=== PATIENT | female | born 1990 | race Caucasian/White ===

== ENCOUNTER 2022-06-29 16:57 | Emergency (ER) | payer OTHER ==
[2022-06-29 18:23] VITALS: TEMP 98.5
[2022-06-29] MEDS ORDERED: SODIUM CHLORIDE 0.9% 1,000 ML IV ONE (22:49)
[2022-06-29] MEDS ORDERED: KETOROLAC 15 MG/ML 1 ML VIAL IVP STA (22:49)
[2022-06-29 23:14] LABS: Appearance,Urine Cloudy (Clear); Bacteria,Urine Rare /hpf; Bilirubin,Urine Negative (Negative); Blood,Urine Large (Negative); Color,Urine Yellow; Glucose,Urine (UA) Negative (Negative); Ketones,Urine Negative (Negative); Leukocyte Esterase,Urine Large (Negative); Mucus,Urine Few /hpf; Nitrite,Urine Negative (Negative); Protein,Urine Trace (Negative); RBC,Urine 7 /hpf (0-5); Specific Gravity,Urine 1.021 (1.001-1.035); Squamous Epithelial Cell,Urine 29 /hpf (0-4); Urobilinogen,Urine <2.0 mg/dL (<2.0); WBC,Urine 12 /hpf (0-5)
[2022-06-29 23:25] LABS: Basophils # (A) 0.1 k/uL (0-0.2); Basophils % (A) 1 %; Eosinophils # (A) 0.2 k/uL (0-0.7); Eosinophils % (A) 1 %; HCT 40.2 % (34.0-46.0); HGB 12.7 gm/dL (11.4-16.0); Lymphocytes # (A) 4.1 k/uL (1.0-4.8); Lymphocytes % (A) 28 %; MCH 29.2 pg (25.0-35.0); MCHC 31.7 g/dL (31.0-37.0); MCV 91.9 fL (80.0-100.0); Mean Platelet Volume 7.2; Monocytes # (A) 0.7 k/uL (0-1.0); Monocytes % (A) 5 %; Neutrophils # (A) 9.6 k/uL (1.3-7.7); Neutrophils % (A) 64 %; Platelet Count 355 k/uL (150-450); RBC 4.37 m/uL (3.80-5.40); RDW 12.9 % (11.5-15.5)
[2022-06-29 23:43] LABS: INR 0.9 (<1.2); Partial Thromboplastin Time 24.3 sec (22.0-30.0); Prothrombin Time 10.4 sec (9.0-12.0)
[2022-06-30 00:10] LABS: ALT 13 U/L (4-34); African American GFR (CKD) >90 (>60 ml/min/1.73 sqM); Albumin 3.9 g/dL (3.5-5.0); Anion Gap 9 mmol/L; Blood Urea Nitrogen 7 mg/dL (7-17); Calcium 8.7 mg/dL (8.4-10.2); Carbon Dioxide 22 mmol/L (22-30); Chloride 104 mmol/L (98-107); Glucose 83 mg/dL (74-99); Non-African American GFR(CKD) >90 (>60 ml/min/1.73 sqM); Sodium 135 mmol/L (137-145); Total Bilirubin 0.5 mg/dL (0.2-1.3); Total Protein 6.8 g/dL (6.3-8.2)
--- NOTE | 2022-06-30 00:34 | US ---
EXAMINATION TYPE: US pelvis complete transvag DATE OF EXAM: 06/30/2022 COMPARISON: CT scan 06/26/2022 CLINICAL HISTORY: rlq pain, large dermoid. Right pelvic pain, patient states she had imaging done rec ently at [facility] and was told she has a dermoid in right adnexa, patient has IUD TECHNIQUE: . Transvaginal ER exam. Date of LMP: 06/09/2022 EXAM MEASUREMENTS: Uterus: 9.0 x 4.9 x 6.3 cm Endometrial Stripe: 0.9 cm 1. Uterus: wnl 2. Endometrium: IUD seen in place 3. Right Ovary: not seen 4. Left Ovary: not seen 5. Bilateral Adnexa: 8.0 x 5.5 x 7.8cm hyperechoic mass right adnexa 6. Posterior cul-de-sac: wnl IMPRESSION: There is a large solid mass in the right adnexal region. Most of this mass has a density of -[address] scan of 06/26/2022 and consistent with fat related to a large dermoid tumor. Normal uterus. Ovaries not seen.
[2022-06-30 00:37] LABS: AST 26 U/L (14-36); Alkaline Phosphatase 57 U/L (38-126)
--- NOTE | 2022-06-30 01:29 | ED ---
Female Urogenital HPI - General Chief complaint: Vaginal Bleeding Stated complaint: Abd pain Time Seen by Provider: 06/29/22 22:30 Source: patient Mode of arrival: ambulatory Limitations: no limitations - History of Present Illness Initial comments: 32-year-old female who is who presents emergency department with right lower quadrant abdominal pain. States that it is intermittent. It has been going on since Thursday. She went into [facility] on and had a CT performed because of her pain. They found that she had an 8 cm dermoid cyst. Also, she had a UTI. They placed her on Keflex. Patient states she has been taking the medications as directed. Additionally taken Motrin and Tylenol for pain. She continues to have pain in the right lower quadrant. Had significant pain while at work today while standing therefore this prompted her return to the emergency department. Her pain is alleviated when she lays flat. States that the Motrin has not been working very well for her. She did call on Thursday to make an appointment with Dr. Figueroa who is her TERRITORY MANAGER. She admits to frequency of urination. Has had some vaginal spotting which started today. States she normally does not have normal menstrual cycles due to history of PCOS. Patient does have IUD in place. She denies any issues with her bowel movements. No other alleviating, precipitating or modifying factors - Related Data Previous Rx's Medication Instructions Recorded HYDROcodone/APAP 5-325MG [[place] 1 tab PO Q6HR PRN 3 Days #12 tab 06/30/22 5-325] Allergies Allergy/AdvReac Type Severity Reaction Status Date / Time Antihistamines - Ethanolamine Allergy Unknown Verified 06/29/22 18:23 diphenhydramine Allergy Unknown Verified 06/29/22 18:23 [From Benadryl] Review of Systems ROS Statement: Those systems with pertinent positive or pertinent negative responses have been documented in the HPI. ROS Other: All systems not noted in ROS Statement are negative. Past Medical History Additional Past Medical History / Comment(s): cyst on right ovary, PCOS History of Any Multi-Drug Resistant Organisms: None Reported Past Surgical History: Section Past Psychological History: No Psychological Hx Reported Smoking Status: Current every day smoker Past Alcohol Use History: None Reported Past Drug Use History: None Reported General Exam Limitations: no limitations General appearance: alert, in no apparent distress Head exam: Present: atraumatic, normocephalic, normal inspection Eye exam: Present: normal appearance, PERRL, EOMI. Absent: scleral icterus, conjunctival injection, periorbital swelling ENT exam: Present: normal exam, mucous membranes moist Neck exam: Present: normal inspection. Absent: tenderness, meningismus, lymphadenopathy Respiratory exam: Present: normal lung sounds bilaterally. Absent: respiratory distress, wheezes, rales, rhonchi, stridor Cardiovascular Exam: Present: regular rate, normal rhythm, normal heart sounds. Absent: systolic murmur, diastolic murmur, rubs, gallop, clicks GI/Abdominal exam: Present: soft, tenderness (RLQ), normal bowel sounds. Absent: distended, guarding, rebound, rigid Extremities exam: Present: normal inspection, full ROM, normal capillary refill. Absent: tenderness, pedal edema, joint swelling, calf tenderness Back exam: Present: normal inspection Neurological exam: Present: alert, oriented X3, CN II-XII intact Psychiatric exam: Present: normal affect, normal mood Skin exam: Present: warm, dry, intact, normal color. Absent: rash Course Vital Signs 06/29/22 06/29/22 06/30/22 18:18 22:27 02:00 Temperature 98.5 F Pulse Rate 79 79 76 Respiratory 16 19 15 Rate Blood Pressure 141/94 142/72 122/84 O2 Sat by Pulse 100 98 97 Oximetry - Reevaluation(s) Reevaluation #1: 06/30/22 01:[address] Aguiar - patient can be discharged and will need to see Dr. Figueroa on Thursday Medical Decision Making - Medical Decision Making Upon arrival patient is placed in room 9. The rest of physical exam is performed. IV access was established laboratory studies are conducted and reviewed. White count is 15. Urinalysis is not a clean catch as it does demonstrate 29 squamous epithelial cells. Patient is given a dose of Toradol and a liter bolus of normal saline. Ultrasound was performed which is unable to visualize the ovaries. There is a right-sided dermoid cyst measuring 8 cm. I d id call and speak with Dr. Aguiar in regards to patient's care. States the patient can be discharged home and is to follow-up with Dr. Figueroa on Thursday. Patient will be discharged home with Lucama for pain control. Alternate this with Motrin. Continue taking her antibiotic and return to the emergency room for any new or worsening symptoms including constant, worsening pain. Patient understood the strict return parameters with discharge home in stable condition - Lab Data Result diagrams: 06/29/22 23:03 06/29/22 23:03 Lab Results 06/29/22 06/29/22 06/29/22 Range/Units 22:27 22:27 23:03 WBC 15.0 H (3.8-10.6) k/uL RBC 4.37 (3.80-5.40) m/uL Hgb 12.7 (11.4-16.0) gm/dL Hct 40.2 (34.0-46.0) % MCV 91.9 (80.0-100.0) fL MCH 29.2 (25.0-35.0) pg MCHC 31.7 (31.0-37.0) g/dL RDW 12.9 (11.5-15.5) % Plt Count 355 (150-450) k/uL MPV 7.2 Neutrophils % 64 % Lymphocytes % 28 % Monocytes % 5 % Eosinophils % 1 % Basophils % 1 % Neutrophils # 9.6 H (1.3-7.7) k/uL Lymphocytes # 4.1 (1.0-4.8) k/uL Monocytes # 0.7 (0-1.0) k/uL Eosinophils # 0.2 (0-0.7) k/uL Basophils # 0.1 (0-0.2) k/uL PT (9.0-12.0) sec INR (<1.2) APTT (22.0-30.0) sec Sodium (137-145) mmol/L Potassium (3.5-5.1) mmol/L Chloride (98-107) mmol/L Carbon Dioxide (22-30) mmol/L Anion Gap mmol/L BUN (7-17) mg/dL Creatinine (0.52-1.04) mg/dL Est GFR (CKD-EPI)AfAm (>60 ml/min/1.73 sqM) Est GFR (CKD-EPI)NonAf (>60 ml/min/1.73 sqM) Glucose (74-99) mg/dL Calcium (8.4-10.2) mg/dL Total Bilirubin (0.2-1.3) mg/dL AST (14-36) U/L ALT (4-34) U/L Alkaline Phosphatase (38-126) U/L Total Protein (6.3-8.2) g/dL Albumin (3.5-5.0) g/dL Urine Color Yellow Urine Appearance Cloudy H (Clear) Urine pH 6.0 (5.0-8.0) Ur Specific [place] 1.021 (1.001-1.035) Urine Protein Trace H (Negative) Urine Glucose (UA) Negative (Negative) Urine Ketones Negative (Negative) Urine Blood Large H (Negative) Urine Nitrite Negative (Negative) Urine Bilirubin Negative (Negative) Urine Urobilinogen <2.0 (<2.0) mg/dL Ur Leukocyte Esterase Large H (Negative) Urine RBC 7 H (0-5) /hpf Urine WBC 12 H (0-5) /hpf Ur Squamous Epith Cells 29 H (0-4) /hpf Urine Bacteria Rare H (None) /hpf Urine Mucus Few H (None) /hpf Urine HCG, Qual Not Detected (Not Detectd) 06/29/22 06/29/22 Range/Units 23:03 23:03 WBC (3.8-10.6) k/uL RBC (3.80-5.40) m/uL Hgb (11.4-16.0) gm/dL Hct (34.0-46.0) % MCV (80.0-100.0) fL MCH (25.0-35.0) pg MCHC (31.0-37.0) g/dL RDW (11.5-15.5) % Plt Count (150-450) k/uL MPV Neutrophils % % Lymphocytes % % Monocytes % % Eosinophils % % Basophils % % Neutrophils # (1.3-7.7) k/uL Lymphocytes # (1.0-4.8) k/uL Monocytes # (0-1.0) k/uL Eosinophils # (0-0.7) k/uL Basophils # (0-0.2) k/uL PT 10.4 (9.0-12.0) sec INR 0.9 (<1.2) APTT 24.3 (22.0-30.0) sec Sodium 135 L (137-145) mmol/L Potassium 4.0 (3.5-5.1) mmol/L Chloride 104 (98-107) mmol/L Carbon Dioxide 22 (22-30) mmol/L Anion Gap 9 mmol/L BUN 7 (7-17) mg/dL Creatinine 0.54 (0.52-1.04) mg/dL Est GFR (CKD-EPI)AfAm >90 (>60 ml/min/1.73 sqM) Est GFR (CKD-EPI)NonAf >90 (>60 ml/min/1.73 sqM) Glucose 83 (74-99) mg/dL Calcium 8.7 (8.4-10.2) mg/dL Total Bilirubin 0.5 (0.2-1.3) mg/dL AST 26 (14-36) U/L ALT 13 (4-34) U/L Alkaline Phosphatase 57 (38-126) U/L Total Protein 6.8 (6.3-8.2) g/dL Albumin 3.9 (3.5-5.0) g/dL Urine Color Urine Appearance (Clear) Urine pH (5.0-8.0) Ur Specific [place] (1.001-1.035) Urine Protein (Negative) Urine Glucose (UA) (Negative) Urine Ketones (Negative) Urine Blood (Negative) Urine Nitrite (Negative) Urine Bilirubin (Negative) Urine Urobilinogen (<2.0) mg/dL Ur Leukocyte Esterase (Negative) Urine RBC (0-5) /hpf Urine WBC (0-5) /hpf Ur Squamous Epith Cells (0-4) /hpf Urine Bacteria (None) /hpf Urine Mucus (None) /hpf Urine HCG, Qual (Not Detectd) Disposition Clinical Impression: Abdominal pain, Dermoid cyst Disposition: HOME SELF-CARE Condition: Stable Instructions (If sedation given, give patient instructions): Ovarian Cyst (ED) Additional Instructions: Dr. Aguiar is aware that you need to be seen by Dr. Figueroa. Please call the office and try to get an appointment for Thursday as this is the first day that she is back in office. Return to the emergency department should you have any new or worsening symptoms. Alternate taking Motrin and Lucama every 4 hours. Continue taking the antibiotics until finished Prescriptions: HYDROcodone/APAP 5-325MG [[place] 5-325] 1 tab PO Q6HR PRN 3 Days #12 tab PRN Reason: Pain Is patient prescribed a controlled substance at d/c from ED?: Yes When asked, does pt state using other controlled substances?: No If prescribed controlled substance>3 days was MAPS reviewed?: Prescribed <3 Days Referrals: Nonstaff,Physician [Primary Care Provider] - 1-2 days Adrienne Figueroa DO [Doctor of Osteopathic Medicine] - 1-2 days Time of Disposition: 01:29
[2022-06-30 02:06] VITALS: BP 122/84; PULSE 76; RESP 15
== END 2022-06-30 02:18 | disposition home or self-care (01) ==
LOC: EC 16:57
DX: D36.9 Benign neoplasm, unspecified site (principal); R10.31 Right lower quadrant pain; F17.200 Nicotine dependence, unspecified, uncomplicated; Z88.8 Allergy status to other drugs, medicaments and biological substances
CPT/HCPCS: 36415; 80053; 85025; 85610; 85730; 81001; 81025; 87086; 76830; 99284; 96374; 96361 ×3; J1885

== ENCOUNTER → 2022-07-21 | Outpatient (CLI) | payer OTHER ==
[2022-07-21 15:04] LABS: Anion Gap 9.9 mmol/L (10.00-18.00); BUN/Creat Ratio 19.86 Ratio (12.00-20.00); Blood Urea Nitrogen 13.9 mg/dL (9.0-27.0); Carbon Dioxide 26.1 mmol/L (20.0-27.5); Potassium 4.7 mmol/L (3.5-5.5)
[2022-07-21 15:36] LABS: Basophils # (A) 0.05 X 10*3/uL (0.00-0.10); Basophils % (A) 0.4 %; Eosinophils # (A) 0.13 X 10*3/uL (0.04-0.35); Eosinophils % (A) 1.1 %; HCT 41.1 % (37.2-46.3); Immature Grans, Automated 0.5 %; Lymphocytes # (A) 3.17 X 10*3/uL (0.90-5.00); Lymphocytes % (A) 27.5 %; MCH 29.3 pg (27.0-32.0); MCHC 31.6 g/dL (32.0-37.0); MCV 92.6 fL (80.0-97.0); Mean Platelet Volume 9.4 fL (9.5-12.2); Monocytes # (A) 0.77 X 10*3/uL (0.20-1.00); Monocytes % (A) 6.7 %; NRBC Per 100 WBC 0 /100 WBCS (0.0-0.0); Neutrophils # (A) 7.36 X 10*3/uL (1.80-7.70); Neutrophils % (A) 63.8 %; Platelet Count 385 X 10*3/uL (140-440); RBC 4.44 X 10*6/uL (4.10-5.20); RDW 13.1 % (11.5-14.5); WBC 11.54 X 10*3/uL (4.50-10.00)
== END | disposition home or self-care (01) ==
LOC: LABPAT 10:13
PROVIDERS: ATTEND Obstetrics & Gynecology
DX: Z01.812 Encounter for preprocedural laboratory examination (principal)
CPT/HCPCS: 36415; 80048; 85025

== ENCOUNTER 2022-07-31 06:10 | Day surgery (SDC) | payer OTHER ==
[2022-07-28 12:03] VITALS: BMI 42.7
[~2022-07-31 06:10] MED LIST: DEXAMETHASONE SOD PHOSPHATE 4 MG/ML 1 ML VIAL IV ONE; LACTATED RINGERS 1,000 ML IV SCH; ONDANSETRON 4 MG/2 ML VIAL IVP ONE
--- NOTE | 2022-07-31 06:26 | P.HPOB ---
History of Present Illness H&P Date: 07/31/22 Chief Complaint: pelvic pain, dermoid cyst 32 year old presents for right salpingo-oopherectomy using da eugenie for an 8cm dermoid cyst. Review of Systems All systems: negative Constitutional: Denies chills, Denies fever Eyes: denies blurred vision, denies pain Ears, nose, mouth and throat: Denies headache, Denies sore throat Cardiovascular: Denies chest pain, Denies shortness of breath Respiratory: Denies cough Gastrointestinal: Denies abdominal pain, Denies diarrhea, Denies nausea, Denies vomiting Genitourinary: Denies dysuria, Denies hematuria Musculoskeletal: Denies myalgias Integumentary: Denies pruritus, Denies rash Neurological: Denies numbness, Denies weakness Psychiatric: Denies anxiety, Denies depression Endocrine: Denies fatigue, Denies weight change Past Medical History Additional Past Medical History / Comment(s): cyst on right ovary, PCOS History of Any Multi-Drug Resistant Organisms: None Reported Past Surgical History: Section Past Anesthesia/Blood Transfusion Reactions: Motion Sickness Smoking Status: Current every day smoker - Past Family History Mother Family Medical History: Cancer Medications and Allergies Home Medications Medication Instructions Recorded Confirmed Type HYDROcodone/APAP 5-325MG [[place] 1 tab PO Q6HR PRN 3 Days #12 tab 06/30/22 07/28/22 Rx 5-325] Allergies Allergy/AdvReac Type Severity Reaction Status Date / Time Antihistamines - Ethanolamine Allergy Unknown Verified 07/28/22 11:49 Childhood diphenhydramine Allergy Unknown Verified 07/28/22 11:49 [From Benadryl] Childhood Exam Osteopathic Statement: *. No significant issues noted on an osteopathic structural exam other than those noted in the History and Physical/Consult. HEart: RRR Lungs: CTAB Abdomen: soft, nontender Extremeties: neg moses's Assessment and Plan (1) Dermoid cyst Current Visit: Yes Status: Acute Code(s): D36.9 - BENIGN NEOPLASM, UNSPECI FIED SITE SNOMED Code(s): 763432713 Plan: 1. laparoscopic RSO using da eugenie and possible laparotomy
[2022-07-31] MEDS ORDERED: LACTATED RINGERS 1,000 ML IV ONE ×2 (06:39→08:34)
[2022-07-31] MEDS ORDERED: MIDAZOLAM 2 MG/2 ML VIAL ONE (07:25)
[2022-07-31] MEDS ORDERED: SUCCINYLCHOLINE CHLORIDE 200 MG/10 ML VIAL IV ONE (07:25)
[2022-07-31] MEDS ORDERED: HYDROmorphone (PF) 1 MG/ML ONE (07:25)
[2022-07-31] MEDS ORDERED: NEOSTIGMINE 1 MG/ML 10 ML VIAL ONE (07:25)
[2022-07-31] MEDS ORDERED: KETOROLAC 30 MG/ML 1 ML VIAL ONE (07:25)
[2022-07-31] MEDS ORDERED: LIDOCAINE 2% INJ 20 MG/ML (2 ML VIAL) ONE (07:25)
[2022-07-31] MEDS ORDERED: PROPOFOL 10 MG/ML 20 ML VIAL IV ONE (07:25)
[2022-07-31] MEDS ORDERED: ePHEDrine 50 MG/ML 1 ML VIAL ONE (07:25)
[2022-07-31] MEDS ORDERED: GLYCOPYRROLATE 0.2 MG/ML 2 ML VIAL ONE (07:25)
[2022-07-31] MEDS ORDERED: fentaNYL (PF) 50 MCG/ML 2 ML AMP ONE (07:25)
[2022-07-31] MEDS ORDERED: ROCURONIUM 10 MG/ML (5 ML VIAL) IV ONE (07:25)
[2022-07-31] MEDS ORDERED: BUPIVACAINE (PF) 0.5% 30 ML VIAL SQ ONE ×2 (08:18→09:00)
--- NOTE | 2022-07-31 09:17 | P.OP ---
Date of Procedure: 07/31/22 Preoperative Diagnosis: 1. dermoid cyst Postoperative Diagnosis: Dermoid cyst on right ovary Procedure(s) Performed: Laparoscopic right salpingo-oophorectomy and removal of dermoid cyst with lysis of adhesions using da Nena, Anesthesia: DOMENICO Surgeon: Adrienne Figueroa Estimated Blood Loss (ml): 10 IV fluids (ml): 1,000 Urine output (ml): 20 Pathology: other (Ovary with dermoid cyst and fallopian tube) Condition: stable Disposition: PACU Operative Findings: Enlarged right ovary. Sebaceous fluid and hair noted within the cyst. Uterus sounded to [address] Description of Procedure: Patient taken the operating room where general anesthesia was obtained without difficulty. She is prepped and draped in normal sterile fashion dorsal lithotomy position, legs placed in the Swapnil stirrups. Weighted speculum placed in the vagina and the anterior lip the cervix was grasped with single-tooth tenaculum. The uterus sounded to 12 cm and the Kyleena IUD was noted to be in place. The acorn manipulator tip was placed in the uterus. Horne catheter was used to drain the bladder. Attention was then turned to the abdomen and gloves were changed. A 5 mm supraumbilical incision was made the scalpel and a 5 mm optical trocar was placed under direct visualization. 10 cm to the right of this and 2 cm down a 5 mm incision was made and 8 mm da Nena port was placed under direct visualization. Same measurements on the opposite side of the patient's abdomen, the 5 mm incision was made and 8 mm da Nena port was placed under direct visualization. In the left upper quadrant a 10 mm incision was made and a 10 mm optical trocar was placed under direct visualization. The 5 mm optical trocar was then replaced with the 8 mm da Nena camera port. The robot was docked on patient's left side. The camera was introduced and then the monopolar curved scissor and [place] bipolar placed under direct visualization. I broke scrub and went to the physician console. There were omental adhesions going from the symphysis pubis on the anterior wall all the way to the umbilicus. This was taken down using the monopolar curved scissors. The right ovary then came into view and the omentum fell away. The right utero-ovarian ligament was cauterized using the [place] bipolar and taken down using the monopolar curved scissors. The fallopian tube was also removed in this way. A #10 bag was then introduced into the pelvis through the assistant manager quality management port. The ovary was placed over the bag and an open to drain into the bag. The ovary and cyst were also placed into the bag. It was then taken out through the assistant manager quality management port. The pelvis was copiously irrigated. Hemostasis was assured. All instruments were then removed from the abdomen and pelvis. The 10 mm incision was closed first with 0 Vicryl and the fascial layer and then 4-0 Vicryl in a subcuticular fashion. The 5 mm abdominal incisions were closed with 4-0 Vicryl in a subcuticular fashion. Patient tolerated the procedure well, sponge and instrument counts correct 2 and she was taken to recovery room in stable condition condition
[2022-07-31 09:24] VITALS: TEMP 96.8
[2022-07-31] MEDS: HYDROmorphone 0.5 MG/0.5 ML SYRINGE IVP PRN ×2 (09:33→09:43)
[2022-07-31 09:58] VITALS: RESP 16
[2022-07-31 10:35] VITALS: BP 128/69; PULSE 71
[2022-07-31] MEDS ORDERED: ONDANSETRON 4 MG/2 ML VIAL ONE (10:45)
[2022-07-31] MEDS ORDERED: ONDANSETRON 4 MG/2 ML VIAL IVP ONE (10:45)
== END 2022-07-31 12:38 | disposition home or self-care (01) ==
LOC: OR 06:10
PROVIDERS: ATTEND Obstetrics & Gynecology
DX: D27.0 Benign neoplasm of right ovary (principal); N73.6 Female pelvic peritoneal adhesions (postinfective); Z88.8 Allergy status to other drugs, medicaments and biological substances; Z79.891 Long term (current) use of opiate analgesic; I10 Essential (primary) hypertension; F17.200 Nicotine dependence, unspecified, uncomplicated; Z79.899 Other long term (current) drug therapy
CPT/HCPCS: 58661; 81025; 86900; 86901; 86850; 88307; J2250; J0330; J1100; J2710; J0690; J2405; J3010; J1885; J1170 ×2; J2704; J2001

== ENCOUNTER 2024-03-07 09:56 | Emergency (ER) | payer OTHER ==
[2024-03-07 10:19] VITALS: RESP 18; TEMP 98.6
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
[2024-03-07] MEDS: ACETAMINOPHEN TAB 325 MG TAB PO STA (11:07)
--- NOTE | 2024-03-07 11:09 | XR ---
EXAMINATION TYPE: XR cervical spine comp DATE OF EXAM: 03/07/2024 11:03 AM CLINICAL INDICATION:Female, 33 years old with history of neck pain; COMPARISON: 03/07/2024. TECHNIQUE: The cervical spine was imaged in frontal, lateral, odontoid and bilateral oblique. FINDINGS: The osseous structures show straightening alignment without evidence of an acute fracture. There are osteophytes noted throughout the cervical spine on the anterior and lateral aspects of the vertebral bodies. The intervertebral disk spaces are narrowed at multiple levels. Pedicles are intact. Soft ti ssues are within normal limits. The odontoid appears intact. IMPRESSION: 1. No fracture or dislocation. 2. Mild degenerative disc disease changes of the cervical spine.
[2024-03-07 11:56] VITALS: BP 130/85; PULSE 77
== END 2024-03-07 11:32 | disposition home or self-care (01) ==
LOC: EC 09:56
DX: S16.1XXA Strain of muscle, fascia and tendon at neck level, initial encounter (principal); F17.290 Nicotine dependence, other tobacco product, uncomplicated; Z88.8 Allergy status to other drugs, medicaments and biological substances; W50.0XXA Accidental hit or strike by another person, initial encounter
CPT/HCPCS: 72050; 99283